=== PATIENT | male | born 1940 | race Caucasian/White ===

== ENCOUNTER 2021-08-27 17:30 | Emergency (ER) | payer MEDICARE ==
[~2021-08-27] VITALS: Ht 175.3 cm; Wt 114.0 kg
[2021-08-27 17:47] VITALS: BP 159/80
[2021-08-27] MEDS ORDERED: ENAL20TA11 PO (17:56)
[2021-08-27] MEDS ORDERED: METO200T28 PO (17:56)
[2021-08-27] MEDS ORDERED: LORA-622 PO (18:01)
[2021-08-27] MEDS ORDERED: ELIQ5TAB PO (18:01)
[2021-08-27] MEDS ORDERED: FAMO10TA50 PO (18:01)
[2021-08-27] MEDS ORDERED: REPA1TAB6 PO (18:01)
[2021-08-27] MEDS ORDERED: ASPI81TA26 PO (18:01)
[2021-08-27] MEDS ORDERED: METF500T13 PO (18:01)
[2021-08-27] MEDS ORDERED: FOLI400T13 PO (18:01)
== END 2021-08-27 18:31 | disposition left against medical advice (07) ==
LOC: M ED 17:30
DX: Z53.29 Procedure and treatment not carried out because of patient's decision for other reasons (principal)

== ENCOUNTER 2024-01-17 03:44 | Inpatient (IN) | payer MEDICARE, SELFPAY ==
[~2024-01-17] VITALS: Ht 175.3 cm; Wt 107.0 kg
[2024-01-17] VITALS (53 sets, daily range): BP systolic 99–156; BP diastolic 62–103; TEMP 97–98; O2SAT 85–96
[~2024-01-17 03:44] MED LIST: ASPI81TA26 PO; ELIQ5TAB PO; ENAL1TAB52 PO; FAMO10TA50 PO; FOLI400T13 PO; LORA-622 PO; METF500T13 PO; METO200T28 PO; REPA1TAB6 PO
[2024-01-17 04:00] LABS: ABG BASE EXCESS -5.7 (-2.0-2.0); ABG HCO3 18.3 MMOL/L (22.0-26.0); ABG O2 SATURATION 98.8 % (95.0-99.0); ABG STANDARD HCO3 19.9 MMOL/L. (22.0-26.0); ABG TOTAL CO2 19.2 MMOL/L (23.0-31.0); ABG pH (ARTERIAL) 7.388 UNITS (7.350-7.450)
[2024-01-17 04:14] LABS: BASO # 0.1 10^3/uL (0.0-0.2); BASO % 0.7 % (0.0-1.0); EOS % 0.1 % (0.0-3.0); HEMATOCRIT 35.7 % (42.0-52.0); HEMOGLOBIN 11.5 g/dl (13.5-17.5); LYMPH # 0.8 10^3/uL (1.5-5.0); LYMPH % 4.5 % (24.0-44.0); MEAN CORPUSCULAR HEMOGLOBIN 26.7 pg (27.0-33.0); MEAN CORPUSCULAR HGB CONC 32.2 g/dl (32.0-36.5); MONO # 1.2 10^3/uL (0.0-0.8); MONO % 6.7 % (2.0-8.0); NEUTROPHILS % 87.3 % (36.0-66.0); WHITE BLOOD COUNT 18.4 10^3/uL (4.0-10.0)
[2024-01-17] MEDS: IPRATROPIUM 0.5MG/ALBUTEROL 2.5MG INH SOL UD 3ML (DUONEB) NEB SCH (04:14)
[2024-01-17 04:20] LABS: INR 1.26; PARTIAL THROMBOPLASTIN TIME 27.3 SECONDS (24.8-34.2); PROTHROMBIN TIME 15.4 SECONDS (12.5-14.5)
[2024-01-17 04:31] LABS: ALBUMIN 3.9 G/DL (3.2-5.2); ALKALINE PHOSPHATASE 83 U/L (46-116); ALT/SGPT 21 U/L (7.0-40); AST/SGOT 21 U/L (<34); BILIRUBIN,DIRECT 0.2 MG/DL (<0.4); BILIRUBIN,TOTAL 0.7 MG/DL (0.3-1.2); BLOOD UREA NITROGEN 20 MG/DL (9-23); CALCIUM LEVEL 8.6 MG/DL (8.3-10.6); CARBON DIOXIDE LEVEL 21 MMOL/L (20-31); CHLORIDE LEVEL 104 MMOL/L (98-107); CPK CREATINE PHOSPHOKINASE 86 U/L (46-171); CREATININE FOR GFR 0.93 MG/DL (0.70-1.30); GLOMERULAR FILTRATION RATE > 60.0 (>35); GLUCOSE, FASTING 308 MG/DL (74-106); POTASSIUM SERUM 5.1 MMOL/L (3.5-5.1); SODIUM LEVEL 133 MMOL/L (136-145); TOTAL PROTEIN 6.8 G/DL (5.7-8.2)
[2024-01-17 04:34] LABS: CK-MB VALUE MASS < 1.0 NG/ML (<3.6); MB/CK RELATIVE INDEX 1.16 (< OR =4)
[2024-01-17] MEDS ORDERED: ISOVUE-370 76% 100ML VIAL As Ordered ONE (04:39)
[2024-01-17 04:46] LABS: PLATELET COUNT, AUTOMATED 1 10^3/uL (150-450)
[2024-01-17] MEDS: LevoFLOXacin IV 750 MG in IV 1 EA IV ONE (05:28)
[2024-01-17] MEDS: FUROSEMIDE 40MG/4ML VIAL IV ONE ×2 (05:37→11:41)
[2024-01-17] MEDS ORDERED: PREDOPD OU (06:04)
[2024-01-17] MEDS ORDERED: FAMO40TA3 PO (06:04)
[2024-01-17] MEDS ORDERED: MULT-40 PO (06:04)
[2024-01-17] MEDS ORDERED: METO50TA7 PO (06:04)
[2024-01-17] MEDS ORDERED: ENAL1TAB50 PO (06:04)
[2024-01-17] MEDS ORDERED: FAMO20TA PO (06:04)
[2024-01-17] MEDS ORDERED: FOLI1TAB11 PO (06:04)
[2024-01-17] MEDS ORDERED: METF-839 PO (06:04)
[2024-01-17] MEDS ORDERED: SYST1SOL4 OU (06:04)
[2024-01-17] MEDS ORDERED: [UNRECOGNIZED DRUG - CODE] SL (06:04)
[2024-01-17] MEDS ORDERED: PILO1OPD OU (06:04)
[2024-01-17] MEDS ORDERED: ASPI-615 PO (06:04)
[2024-01-17] MEDS ORDERED: ALIG4CAP PO (06:04)
[2024-01-17] MEDS ORDERED: COMB0.2S OU (06:04)
[2024-01-17] MEDS ORDERED: HOME MED LIST COMPLETE! XX SCH (06:05)
[2024-01-17 07:38] LABS: ABG BASE EXCESS -4.7 (-2.0-2.0); ABG HCO3 18.3 MMOL/L (22.0-26.0); ABG O2 SATURATION 97.8 % (95.0-99.0); ABG PARTIAL PRESSURE CO2 27.9 mmHg (35.0-45.0); ABG PARTIAL PRESSURE O2 100.8 mmHg (75.0-100.0); ABG STANDARD HCO3 20.6 MMOL/L. (22.0-26.0); ABG TOTAL CO2 19.1 MMOL/L (23.0-31.0); ABG pH (ARTERIAL) 7.434 UNITS (7.350-7.450)
[2024-01-17 08:02] LABS: CK-MB VALUE MASS 3.4 NG/ML (<3.6)
[2024-01-17 08:06] LABS: MB/CK RELATIVE INDEX 2.59 (< OR =4)
[2024-01-17] MEDS: METOPROLOL TART 50 MG TAB PO SCH (10:16)
[2024-01-17] MEDS: MAG SULF 1GM/100ML (MAG RUN) 1 GM in IV 1 EA IV SCH (10:16)
[2024-01-17 10:17] LABS: HEMOGLOBIN A1c 7.1 % (4.0-6.0)
[2024-01-17 12:02] LABS: BASO # 0.1 10^3/uL (0.0-0.2); BASO % 0.2 % (0.0-1.0); HEMATOCRIT 33.8 % (42.0-52.0); HEMOGLOBIN 11.1 g/dl (13.5-17.5); LYMPH # 0.6 10^3/uL (1.5-5.0); MEAN CORPUSCULAR HGB CONC 32.8 g/dl (32.0-36.5); MEAN CORPUSCULAR VOLUME 82.2 fl (80.0-96.0); MONO # 1.1 10^3/uL (0.0-0.8); MONO % 5.3 % (2.0-8.0); NEUTROPHILS # 19.3 10^3/uL (1.5-8.5); NEUTROPHILS % 90.8 % (36.0-66.0); RED BLOOD COUNT 4.11 10^6/uL (4.30-6.10); WHITE BLOOD COUNT 21.3 10^3/uL (4.0-10.0)
[2024-01-17 12:05] LABS: PLATELET COUNT, AUTOMATED 1 10^3/uL (150-450)
[2024-01-17 12:30] LABS: BLOOD UREA NITROGEN 21 MG/DL (9-23); CALCIUM LEVEL 8.7 MG/DL (8.3-10.6); CARBON DIOXIDE LEVEL 22 MMOL/L (20-31); CHLORIDE LEVEL 103 MMOL/L (98-107); CREATININE FOR GFR 0.98 MG/DL (0.70-1.30); GLOMERULAR FILTRATION RATE > 60.0 (>35); GLUCOSE, FASTING 291 MG/DL (74-106); PHOSPHORUS LEVEL 3.2 MG/DL (2.4-5.1); POTASSIUM SERUM 4.8 MMOL/L (3.5-5.1); SODIUM LEVEL 134 MMOL/L (136-145)
[2024-01-17 12:37] LABS: THYROID STIMULATING HORMONE 4.435 uIU/ML (0.55-4.78)
[2024-01-17 12:38] LABS: FREE T4 1.02 NG/DL (0.89-1.76)
[2024-01-17] MEDS: predniSONE 20 MG TAB PO SCH (16:13)
[2024-01-17] MEDS: FAMOTIDINE 20MG/2ML VIAL IVP ONE (18:24)
[2024-01-17 18:31] LABS: HEMATOCRIT 31.9 % (42.0-52.0); HEMOGLOBIN 10.4 g/dl (13.5-17.5); MEAN CORPUSCULAR HEMOGLOBIN 26.6 pg (27.0-33.0); MEAN CORPUSCULAR HGB CONC 32.6 g/dl (32.0-36.5); MEAN CORPUSCULAR VOLUME 81.6 fl (80.0-96.0); RED BLOOD COUNT 3.91 10^6/uL (4.30-6.10); WHITE BLOOD COUNT 22.8 10^3/uL (4.0-10.0)
[2024-01-17 18:44] LABS: PLATELET COUNT, AUTOMATED 1 10^3/uL (150-450)
[2024-01-17] MEDS: FAMOTIDINE 20 MG TAB PO SCH (20:39)
[2024-01-17] MEDS ORDERED: ALBUTEROL SULFATE 2.5MG/0.5ML INH NEB SOLN NEB PRN (21:35)
[2024-01-17] MEDS: PANTOPRAZOLE 40MG VIAL IV ONE (22:42)
[2024-01-17] MEDS: prednisoLONE ACET 1% OPHTH SUSP 5ML OU SCH (22:42)
[2024-01-17] MEDS: PILOCARPINE 1% OU SCH (22:43)
[2024-01-17] MEDS: METOPROLOL 5 MG/5 ML VIAL IV PRN (23:22)
[2024-01-18] VITALS (20 sets, daily range): BP systolic 49–149; BP diastolic 23–84; TEMP 101.2; O2SAT 19–95
[2024-01-18] MEDS: FUROSEMIDE 20MG/2ML VIAL IV ONE (00:20)
[2024-01-18] MEDS ORDERED: CEFEPIME HCL 2 GM in D5W 50 ML IV SCH (00:25)
[2024-01-18] MEDS: ACETAMINOPHEN *IV* 1,000 MG in IV 1 EA IV ONE (00:28)
[2024-01-18] MEDS ORDERED: LEVALBUTEROL 1.25MG 0.5ML CONCENTRATE NEB INH PRN ×2 (00:50→01:20)
[2024-01-18] MEDS ORDERED: VANCOMYCIN HCL 1,000 MG, VIAL MATE ADAPTER 1 EACH in NS 250 ML IV SCH (00:55)
[2024-01-18 00:57] LABS: ABG BASE EXCESS -2.5 (-2.0-2.0); ABG HCO3 20.4 MMOL/L (22.0-26.0); ABG O2 SATURATION 88.7 % (95.0-99.0); ABG PARTIAL PRESSURE CO2 29.1 mmHg (35.0-45.0); ABG PARTIAL PRESSURE O2 54.7 mmHg (75.0-100.0); ABG STANDARD HCO3 22.3 MMOL/L. (22.0-26.0); ABG TOTAL CO2 21.3 MMOL/L (23.0-31.0); ABG pH (ARTERIAL) 7.463 UNITS (7.350-7.450)
[2024-01-18] MEDS ORDERED: IMMUNE GLOBULIN 10% 40 GM in IV 1 EA IV ONE (01:00)
[2024-01-18] MEDS ORDERED: LORazepam 2 MG/ML 1ML VIAL As Ordered ONE (01:10)
[2024-01-18] MEDS: MEROPENEM INJ 1 GM in IV 1 EA IV SCH (01:14)
[2024-01-18] MEDS: LORazepam 2 MG/ML 1ML VIAL IV STA (01:19)
[2024-01-18] MEDS: LEVALBUTEROL 1.25MG 0.5ML CONCENTRATE NEB INH SCH (01:19)
[2024-01-18] MEDS: ALBUTEROL SULFATE 2.5MG/0.5ML INH NEB SOLN NEB SCH (01:20)
[2024-01-18 01:33] LABS: HEMATOCRIT 30.6 % (42.0-52.0); HEMOGLOBIN 10.3 g/dl (13.5-17.5); MEAN CORPUSCULAR HGB CONC 33.7 g/dl (32.0-36.5); MEAN CORPUSCULAR VOLUME 80.1 fl (80.0-96.0); RED BLOOD COUNT 3.82 10^6/uL (4.30-6.10); WHITE BLOOD COUNT 23.2 10^3/uL (4.0-10.0)
[2024-01-18 01:38] LABS: PLATELET COUNT, AUTOMATED 1 10^3/uL (150-450)
[2024-01-18] MEDS: IMMUNE GLOBULIN 10% 10 GM in IV 1 EA IV ONE (01:40)
[2024-01-18] MEDS ORDERED: SUCCINYLCHOLINE 100MG/5ML SYRINGE ONE (02:00)
[2024-01-18] MEDS ORDERED: LEVALBUTEROL 1.25MG 0.5ML CONCENTRATE NEB INH SCH (02:00)
[2024-01-18] MEDS ORDERED: EPINEPHrine HCL INJ 1 MG in D5W 240 ML IV SCH (02:20)
[2024-01-18] MEDS ORDERED: EPINEPHrine INJ 1 MG/ML 1ML AMP As Ordered ONE (02:20)
[2024-01-18] MEDS ORDERED: EPINEPHrine HCL INJ 4 MG in D5W 996 ML IV SCH (03:00)
[2024-01-18] MEDS ORDERED: LevoFLOXacin IV 750 MG in IV 1 EA IV SCH (09:00)
[2024-01-18] MEDS ORDERED: ENALAPRIL MALEATE 10 MG TAB PO SCH (09:00)
[2024-01-18] MEDS ORDERED: LORATADINE 10 MG TAB PO SCH (09:00)
[2024-01-18] MEDS ORDERED: FAMOTIDINE 20 MG TAB PO SCH (09:00)
[2024-01-18] MEDS ORDERED: ASPIRIN 81MG ENTERIC TABLET PO SCH (17:30)
[2024-01-18] MEDS ORDERED: FOLIC ACID 1MG TAB PO SCH (17:30)
== END 2024-01-18 06:01 | disposition expired | DRG 813 ==
LOC: M ED 03:44 → EDBD 03:44 → M ED INP 09:00 → ENRESERV 09:17 → M ICU 10:34
PROVIDERS: ADMIT Internal Medicine Pulmonary Disease; ATTEND Internal Medicine Pulmonary Disease
PROC: 0BH17EZ Insertion of Endotracheal Airway into Trachea, Via Natural or Artificial Opening (ICD-10-PCS; principal; 2024-01-17)
PROC: B246ZZZ Ultrasonography of Right and Left Heart (ICD-10-PCS; 2024-01-17)
PROC: 30233R1 Transfusion of Nonautologous Platelets into Peripheral Vein, Percutaneous Approach (ICD-10-PCS; 2024-01-17)
DX: D69.3 Immune thrombocytopenic purpura (principal); I21.A1 Myocardial infarction type 2; J18.9 Pneumonia, unspecified organism; J96.01 Acute respiratory failure with hypoxia; E87.20 Acidosis, unspecified; E87.1 Hypo-osmolality and hyponatremia; I11.0 Hypertensive heart disease with heart failure; D64.9 Anemia, unspecified; E11.9 Type 2 diabetes mellitus without complications; J44.9 Chronic obstructive pulmonary disease, unspecified; J84.10 Pulmonary fibrosis, unspecified; I27.20 Pulmonary hypertension, unspecified; I48.91 Unspecified atrial fibrillation; K21.9 Gastro-esophageal reflux disease without esophagitis; H40.9 Unspecified glaucoma; H91.93 Unspecified hearing loss, bilateral; E78.5 Hyperlipidemia, unspecified; G47.33 Obstructive sleep apnea (adult) (pediatric); F41.9 Anxiety disorder, unspecified; I50.811 Acute right heart failure; R58 Hemorrhage, not elsewhere classified; D69.6 Thrombocytopenia, unspecified; I46.9 Cardiac arrest, cause unspecified; J47.9 Bronchiectasis, uncomplicated; E66.9 Obesity, unspecified; R00.0 Tachycardia, unspecified; R00.1 Bradycardia, unspecified; Z95.3 Presence of xenogenic heart valve; Z98.49 Cataract extraction status, unspecified eye; Z79.01 Long term (current) use of anticoagulants; Z79.84 Long term (current) use of oral hypoglycemic drugs; Z88.0 Allergy status to penicillin; Z88.1 Allergy status to other antibiotic agents; Z88.8 Allergy status to other drugs, medicaments and biological substances; Z68.34 Body mass index [BMI] 34.0-34.9, adult; Z79.899 Other long term (current) drug therapy